=== PATIENT | female | born 2000 | race Two or more races ===

== ENCOUNTER 2022-07-21 20:31 | Emergency (ER) | payer MEDICAID, OTHER ==
[~2022-07-21] VITALS: Ht 167.6 cm; Wt 106.0 kg
[2022-07-21 21:04] VITALS: BP 129/91
[2022-07-22] MEDS ORDERED: NEOM0.1O7 OP (01:23)
== END 2022-07-22 02:28 | disposition home or self-care (01) ==
LOC: ER 20:31
DX: H01.004 Unspecified blepharitis left upper eyelid (principal)